=== PATIENT | female | born 1985 | race Caucasian/White ===

== ENCOUNTER 2017-03-30 13:04 | Inpatient (IN) ==
[2017-03-30 14:13] LABS: URINE SOURCE VOIDED
[2017-03-30 14:16] LABS: BILIRUBIN URINE NEGATIVE (NEGATIVE); BLOOD URINE 4+ (NEGATIVE); CLARITY VERY CLOUDY (CLEAR); COLOR YELLOW; GLUCOSE URINE NEGATIVE (NEGATIVE); LEUKOCYTES URINE 1+ (NEGATIVE); NITRITE URINE NEGATIVE (NEGATIVE); PROTEIN URINE 2+(100 mg/dL) mg/dL (NEGATIVE); UROBILINOGEN URINE NORMAL
[2017-03-30] MEDS ORDERED: KEFZOL 1 GM/D5W 1 GM/50 ML IVPB IV PRN (14:27)
[2017-03-30] MEDS ORDERED: TYLENOL PO PRN (14:27)
[2017-03-30] MEDS ORDERED: REGLAN PO ONE (14:27)
[2017-03-30] MEDS ORDERED: PEPCID IV PRN (14:27)
[2017-03-30] MEDS ORDERED: PEPCID PO PRN (14:27)
[2017-03-30] MEDS ORDERED: STADOL IV PRN (14:27)
[2017-03-30] MEDS ORDERED: ZOFRAN IV PRN (14:27)
[2017-03-30] MEDS ORDERED: PEPCID PO ONE (14:27)
[2017-03-30] MEDS ORDERED: SODIUM CHLORIDE 0.9% INJ SCH (14:30)
[2017-03-30] MEDS: LR 1,000 ML IV SCH ×2 (14:55→16:08)
[2017-03-30 15:35] LABS: MANUAL DIFF NEEDED? NO
[2017-03-30 15:37] LABS: BASO% 0.1 % (0.0-0.8); EOS# 0.04 X1000 (0.0-0.7); EOS% 0.4 % (0.0-10.0); HEMATOCRIT 35.1 % (37.0-47.0); IMM GRAN# 0.14 X1000 (0.0-0.04); IMM GRAN% 1.4 % (0.0-0.5); LYMPH% 20.5 % (20.5-51.1); MCH 29.2 PG (27-31); MCHC 34.2 g/dL (33-37); MCV 85.4 FL (81-99); MONO# 0.87 X1000 (0.11-0.59); MONO% 8.5 % (1.7-9.3); MPV 11.3 FL (7.4-10.4); NEUT% 69.1 % (42.2-75.2); PLT 208 X1000 (130-400); RBC 4.11 XMIL (4.2-5.4)
[2017-03-30] MEDS ORDERED: FENTANYL-BUPIV-NS 2 MCG-0.1% 200 ML EPIDURAL SCH (16:00)
[2017-03-30] MEDS: PITOCIN 30 UNITS/LR 30 UNITS/500 ML IV.SOLN IV SCH ×2 (17:33→20:09)
--- NOTE | 2017-03-30 19:39 | OPERATIVE NOTE ---
PROCEDURE DATE: 03/30/2017 PREDELIVERY DIAGNOSES: 1. Intrauterine at term. 2. Spontaneous rupture of membranes. 3. Hypothyroidism. POSTDELIVERY DIAGNOSES: 1. Intrauterine at term. 2. Spontaneous rupture of membranes. 3. Hypothyroidism. PROCEDURE PERFORMED: Vaginal delivery. SURGEON: Alberto Costello MD ANESTHESIA: General endotracheal with Dr. Millard. FINDINGS: Viable male , occiput anterior, 8 pounds 9 ounces. Do not have scores. There was a second-degree midline laceration repaired with 3-0 Polysorb in the usual fashion. Placenta and cord were normal. All counts were correct. ESTIMATED BLOOD LOSS: 100 mL. PROCEDURE IN DETAIL: Please refer to Ms. Rosen's records. She was admitted this afternoon with spontaneous rupture of membranes. She was augmented with Pitocin after an ultrasound was done verifying the vertex presentation, and she received epidural anesthesia. She labored without distress or dystocia, became complete, and started pushing, soon after crowned, at which point the bed was broken down, and she was prepped and draped. With continued pushing, she delivered a viable male infant, occiput anterior, over a second-degree laceration. Once head delivered, shoulders and the body delivered without difficulty, and the cord was doubly clamped and cut. Care of the was taken over by nursery personnel. Cord blood was obtained, and a 3-vessel cord was noted. Gentle traction on the cord resulted in delivery of the placenta after approximately 3 minutes. It was inspected and found to be intact and then discarded. A second-degree laceration was noted and repaired in the usual fashion with 3- 0 Polysorb. Vaginal sweep was done. There were no clots or foreign material. All counts correct. Estimated blood loss 100 mL. Expect routine . cc: Alberto Costello MD
[2017-03-30] MEDS ORDERED: HYDROXYZINE IM PRN (20:15)
[2017-03-30] MEDS ORDERED: PITOCIN 20 UNITS/LR 20 UNITS/1,000 ML IV.SOLN IV SCH (20:15)
[2017-03-30] MEDS ORDERED: MINERAL OIL PO PRN (20:15)
[2017-03-30] MEDS ORDERED: CYTOTEC PO PRN (20:15)
[2017-03-30] MEDS ORDERED: HYDROXYZINE PO PRN (20:15)
[2017-03-30] MEDS ORDERED: PITOCIN 30 UNITS/LR 30 UNITS/500 ML IV.SOLN IV ONE (20:15)
[2017-03-30] MEDS ORDERED: NORCO-10 PO PRN (20:15)
[2017-03-30] MEDS ORDERED: PITOCIN IM PRN (20:15)
[2017-03-30] MEDS ORDERED: BENADRYL PO PRN (20:15)
[2017-03-30] MEDS ORDERED: BOOSTRIX VACCINE IM ONE (20:15)
[2017-03-30] MEDS ORDERED: M-M-R II VACCINE SUBQ ONE (20:15)
[2017-03-30] MEDS ORDERED: BENADRYL IV PRN (20:15)
[2017-03-30] MEDS ORDERED: AMBIEN PO PRN (20:15)
[2017-03-30] MEDS ORDERED: XYLOCAINE-MPF 1% INJ PRN (20:15)
[2017-03-30] MEDS ORDERED: NORCO-5 PO PRN (20:15)
[2017-03-30] MEDS: PERI MEDS (DERMOPLAST/NUPERCAINAL/TUCKS) MISC PRN (21:46)
[2017-03-30] MEDS: PERICOLACE PO SCH (21:47)
[2017-03-30] MEDS: MOTRIN PO PRN (21:52)
[2017-03-31] MEDS: MOTRIN PO PRN ×3 (05:17→20:33)
[2017-03-31] MEDS: SYNTHROID PO SCH (06:56)
[2017-03-31 07:10] LABS: MANUAL DIFF NEEDED? NO
[2017-03-31 07:14] LABS: BASO% 0.1 % (0.0-0.8); EOS# 0.05 X1000 (0.0-0.7); EOS% 0.3 % (0.0-10.0); HEMATOCRIT 32.3 % (37.0-47.0); HEMOGLOBIN 10.8 g/dL (12.0-16.0); IMM GRAN# 0.11 X1000 (0.0-0.04); IMM GRAN% 0.8 % (0.0-0.5); LYMPH# 1.93 X1000 (1.2-3.4); LYMPH% 13.4 % (20.5-51.1); MCH 28.5 PG (27-31); MCHC 33.4 g/dL (33-37); MCV 85.2 FL (81-99); MONO# 1.18 X1000 (0.11-0.59); MONO% 8.2 % (1.7-9.3); NEUT% 77.2 % (42.2-75.2); PLT 181 X1000 (130-400); RBC 3.79 XMIL (4.2-5.4)
[2017-03-31] MEDS: FERROUS SULFATE PO SCH (09:55)
[2017-03-31] MEDS: PRECARE PO SCH (09:55)
[2017-03-31] MEDS: PERICOLACE PO SCH (20:33)
[2017-04-01] MEDS: MOTRIN PO PRN (04:07)
[2017-04-01] MEDS: SYNTHROID PO SCH (06:07)
[2017-04-01] MEDS: PERI MEDS (DERMOPLAST/NUPERCAINAL/TUCKS) MISC PRN (06:07)
[2017-04-01] MEDS: PRECARE PO SCH (09:16)
[2017-04-01] MEDS: FERROUS SULFATE PO SCH (09:16)
[2017-04-01 09:20] VITALS: BP 124/80
== END 2017-04-01 10:45 | disposition home or self-care (01) ==
LOC: P.OPLD 13:04 → P.LD 13:11 → P.WC 03-31 07:39
PROVIDERS: ADMIT Obstetrics & Gynecology; ATTEND Obstetrics & Gynecology